=== PATIENT | male | born 1965 | race Caucasian/White ===

== ENCOUNTER 2021-06-18 13:45 | Inpatient (IN) | payer OTHER ==
[~2021-06-18] VITALS: Ht 175.3 cm; Wt 82.6 kg
[~2021-06-18 13:45] MED LIST: ASPIRIN 325MG325 MG PO; ASPIRIN CHEWABL81 MG PO; FERROUS SULFAT325 MG PO; FUROSEMIDE20 MG PO; FUROSEMIDE40 MG PO; HYDRALAZINE HCL25 MG PO; LIPITOR TAB 2020 MG PO; LORTAB 7.5-3251 EACH PO; LOSARTAN POTAS100 MG PO; METOPROLOL TART25 MG PO; NOVOLOG 10100 UNITS/ SQ; PANTOPRAZOLE SO40 MG PO; POTASSIUM CHLO10 ME1 PO; SPIRONOLACTONE25 MG PO; SYNTHROID88 MCG PO; TOUJEO SQ
[2021-06-18 15:13] LABS: HEMOGLOBIN 10.6 gm/dl (14.0-17.5); RED BLOOD COUNT 3.61 M/UL (4.20-5.50); WHITE BLOOD COUNT 18.1 K/UL (4.5-11.0)
[2021-06-18] MEDS ORDERED: NITROGLYCERIN0.4 MG SL (18:18)
[2021-06-18] MEDS ORDERED: KLONOPIN0.5 MG PO (18:18)
[2021-06-18] MEDS ORDERED: HYDROCODON-ACE1 EAC2 PO (18:18)
[2021-06-18] MEDS ORDERED: PREDNISOLONE ACE5 ML OS (18:20)
[2021-06-18] MEDS ORDERED: COSOPT EYE DROP10 ML OS (18:21)
[2021-06-18] MEDS ORDERED: DOXYCYCLINE MO100 MG PO (18:22)
[2021-06-18] MEDS ORDERED: ATROPINE SULFATE5 ML OS (18:22)
[2021-06-18] MEDS ORDERED: WARFARIN SODIUM1 MG PO (18:24)
[2021-06-18] MEDS ORDERED: WARFARIN SODIUM2 MG PO (18:24)
[2021-06-19 06:44] LABS: HEMOGLOBIN 9.5 gm/dl (14.0-17.5); RED BLOOD COUNT 3.28 M/UL (4.20-5.50); WHITE BLOOD COUNT 15.3 K/UL (4.5-11.0)
[2021-06-19 21:20] LABS: ADENOVIRUS F 40/41 Not Detected (Negative); ASTROVIRUS Not Detected (Negative); CAMPYLOBACTER Not Detected (Negative); CLOSTRIDIUM DIFFICILE TOX A/B Not Detected (Negative); CRYPTOSPORIDIUM Not Detected (Negative); E.COLI 0157 Not Detected (Negative); ENTAMOEBA HISTOLYTICA Not Detected (Negative); ENTEROAGGREGATIVE E.COLI (EAEC Not Detected (Negative); ENTEROPATHOGENIC E.COLI (EPEC) Not Detected (Negative); ENTEROTOXIGENIC E.COLI (ETEC) Not Detected (Negative); GIARDIA LAMBLIA Not Detected (Negative); NOROVIRUS GI/GII Not Detected (Negative); PLESIOMONAS SHIGELLOIDES Not Detected (Negative); ROTOVIRUS A Not Detected (Negative); SALMONELLA Not Detected (Negative); SAPOVIRUS Not Detected (Negative); SHIG/ENTEROINVAS.ECOLI (EIEC) Not Detected (Negative); SHIGA-LIK TOX.PRO.E.COLI (STEC Not Detected (Negative); VIBRIO Not Detected (Negative); VIBRIO CHOLERAE Not Detected (Negative); YERSINIA ENTEROCOLITICA Not Detected (Negative)
[2021-06-20 06:55] LABS: HEMOGLOBIN 10.8 gm/dl (14.0-17.5); RED BLOOD COUNT 3.75 M/UL (4.20-5.50); WHITE BLOOD COUNT 12.9 K/UL (4.5-11.0)
[2021-06-21 13:11] LABS: ACTIN (SMOOTH MUSCLE) ANTIBODY 13 Units (0-19)
== END 2021-06-20 16:36 | disposition left against medical advice (07) | DRG 871 ==
LOC: ER1 13:45 → CDU 17:23 → PROG CARE 06-19 16:54 → M/S 06-20 12:40
PROVIDERS: Internal Medicine Nephrology; Nurse Practitioner; ADMIT Internal Medicine
PROC: B24BZZ4 Ultrasonography of Heart with Aorta, Transesophageal (ICD-10-PCS; principal; 2021-06-19)
DX: A41.9 Sepsis, unspecified organism (principal); N18.6 End stage renal disease; I21.A1 Myocardial infarction type 2; I12.0 Hypertensive chronic kidney disease with stage 5 chronic kidney disease or end stage renal disease; E11.65 Type 2 diabetes mellitus with hyperglycemia; I48.91 Unspecified atrial fibrillation; K52.9 Noninfective gastroenteritis and colitis, unspecified; E11.21 Type 2 diabetes mellitus with diabetic nephropathy; Z20.822 Contact with and (suspected) exposure to COVID-19; I25.10 Atherosclerotic heart disease of native coronary artery without angina pectoris; E78.5 Hyperlipidemia, unspecified; E11.22 Type 2 diabetes mellitus with diabetic chronic kidney disease; D63.8 Anemia in other chronic diseases classified elsewhere; Z99.2 Dependence on renal dialysis; Z95.1 Presence of aortocoronary bypass graft; Z79.01 Long term (current) use of anticoagulants; Z95.5 Presence of coronary angioplasty implant and graft; Z89.422 Acquired absence of other left toe(s); Z95.828 Presence of other vascular implants and grafts; Z88.0 Allergy status to penicillin
CPT/HCPCS: ECHO; 36415; 71045; 73200; 80053; 82550; 82553; 82962; 83516; 83605; 83690; 83735; 83874; 84100; 84484; 85025; 85610; 86038; 86140; 87040; 87507; 93005; 93306; 96374; 96375; 99285; J2185; J2405; J3370; J7070; U0002

== ENCOUNTER 2021-06-28 11:11 | Emergency (ER) | payer OTHER ==
[~2021-06-28 11:11] MED LIST changes: +ATROPINE SULFATE5 ML OS; +COSOPT EYE DROP10 ML OS; +DOXYCYCLINE MO100 MG PO; +HYDROCODON-ACE1 EAC2 PO; +KLONOPIN0.5 MG PO; +NITROGLYCERIN0.4 MG SL; +PREDNISOLONE ACE5 ML OS; +WARFARIN SODIUM1 MG PO; +WARFARIN SODIUM2 MG PO
[2021-06-28 12:33] LABS: RED BLOOD COUNT 3.22 M/UL (4.20-5.50); WHITE BLOOD COUNT 13.8 K/UL (4.5-11.0)
== END 2021-06-28 15:07 | disposition home or self-care (01) ==
LOC: ER1 11:11
PROVIDERS: Physician Assistant
DX: R10.9 Unspecified abdominal pain (principal); I12.0 Hypertensive chronic kidney disease with stage 5 chronic kidney disease or end stage renal disease; N18.6 End stage renal disease; D63.1 Anemia in chronic kidney disease; G89.29 Other chronic pain; R79.1 Abnormal coagulation profile; E78.5 Hyperlipidemia, unspecified; I48.91 Unspecified atrial fibrillation; Z95.1 Presence of aortocoronary bypass graft; Z79.01 Long term (current) use of anticoagulants; Z99.2 Dependence on renal dialysis; Z79.4 Long term (current) use of insulin; Z88.0 Allergy status to penicillin; Z51.81 Encounter for therapeutic drug level monitoring
CPT/HCPCS: 80053; 83605; 83690; 85025; 85610; 86140; 93005; 99284